=== PATIENT | male | born 1985 | race Caucasian/White ===

== ENCOUNTER 2016-09-22 19:22 | Emergency (ER) | payer MEDICAID, OTHER ==
[~2016-09-22] VITALS: Ht 175.3 cm; Wt 82.6 kg
[2016-09-22 19:23] VITALS: BP 135/73
[2016-09-22] MEDS ORDERED: CYCL10TA PO (20:13)
[2016-09-22] MEDS ORDERED: IBUP-1022 PO (20:13)
[2016-09-22] MEDS ORDERED: IBUPROFEN 600 MG TAB PO ONE (20:15)
[2016-09-22] MEDS ORDERED: CYCLOBENZAPRINE 10 MG TAB PO ONE (20:15)
== END 2016-09-22 20:36 | disposition home or self-care (01) ==
LOC: M ED 19:22
DX: S39.012A Strain of muscle, fascia and tendon of lower back, initial encounter (principal); X50.0XXA Overexertion from strenuous movement or load, initial encounter; Y92.89 Other specified places as the place of occurrence of the external cause; Y93.89 Activity, other specified; Y99.0 Civilian activity done for income or pay

== ENCOUNTER 2017-07-01 17:38 | Emergency (ER) | payer OTHER ==
[2017-07-01] MEDS: DERMABOND TOPICAL SKIN ADHESIVE TOP (20:15)
== END 2017-07-01 20:32 | disposition home or self-care (01) ==
LOC: M ED 17:38
DX: S61.212A Laceration without foreign body of right middle finger without damage to nail, initial encounter (principal); V48.4XXA Person boarding or alighting a car injured in noncollision transport accident, initial encounter; Y92.89 Other specified places as the place of occurrence of the external cause
CPT/HCPCS: 12001

== ENCOUNTER 2019-09-25 08:45 | Emergency (ER) | payer OTHER ==
[~2019-09-25 08:45] MED LIST: CYCL-707 PO; IBUP-1022 PO
[2019-09-25] MEDS ORDERED: diphenhydrAMINE 50MG/ML VIAL (J1200) ONE (09:09)
[2019-09-25] MEDS ORDERED: diphenhydrAMINE 50MG/ML VIAL (J1200) As Ordered ONE (09:09)
[2019-09-25] MEDS ORDERED: dexameTHASONE 4 MG/ML 1ML VIAL (J1100 PER 1MG) As Ordered ONE (09:09)
[2019-09-25] MEDS ORDERED: dexameTHASONE 4 MG/ML 1ML VIAL (J1100 PER 1MG) ONE (09:09)
== END 2019-09-25 10:46 | disposition home or self-care (01) ==
LOC: M ED 08:45
DX: H02.843 Edema of right eye, unspecified eyelid (principal); T63.441A Toxic effect of venom of bees, accidental (unintentional), initial encounter
CPT/HCPCS: 96374; 96375; 99284; J1100; J1200

== ENCOUNTER 2020-06-15 18:00 | Emergency (ER) | payer OTHER ==
[~2020-06-15] VITALS: Ht 177.8 cm; Wt 88.6 kg
[2020-06-15] MEDS ORDERED: advil (18:13)
[2020-06-15] MEDS ORDERED: ACET-897 PO (18:13)
[2020-06-15] MEDS ORDERED: MAGIC MOUTHWASH SUSPENSION BTL SS STA (22:00)
[2020-06-15] MEDS ORDERED: AUGMENTIN 875 MG TAB PO ONE (22:00)
[2020-06-15] MEDS ORDERED: NORCO 5/325MG TABLET (BULK FOR ED) PO ONE (22:00)
[2020-06-15] MEDS ORDERED: MAGICMW SSP (22:04)
[2020-06-15] MEDS ORDERED: HYDR-3713 PO (22:04)
[2020-06-15] MEDS ORDERED: AUGM875T28 PO (22:04)
[2020-06-15 22:13] VITALS: BP 149/88
== END 2020-06-15 22:16 | disposition home or self-care (01) ==
LOC: M ED 18:00
DX: K02.9 Dental caries, unspecified (principal); K08.89 Other specified disorders of teeth and supporting structures; I10 Essential (primary) hypertension; E78.5 Hyperlipidemia, unspecified; Z88.5 Allergy status to narcotic agent

== ENCOUNTER → 2021-05-11 | Outpatient (REF) | payer OTHER ==
[~2021-05-11] MED LIST changes: +ACET-897 PO; +AUGM875T28 PO; +HYDR-3713 PO; +MAGICMW SSP; +advil
== END ==
LOC: M SMT 13:06
PROVIDERS: ATTEND Urology
DX: Z30.2 Encounter for sterilization (principal)

== ENCOUNTER → 2021-07-02 | Outpatient (REF) | payer OTHER ==
[2021-07-02 14:27] LABS: SEMEN APPEARANCE OPAQUE (OPAQUE); SEMEN VISCOSITY LIQUID (LIQUID); SEMEN VOLUME 4.1 ml (2.0-5.0)
[2021-07-02 14:28] LABS: WBC CONCENTRATION <=1 M/ml (<=1 M/ml)
== END ==
LOC: M SMT 14:22
PROVIDERS: ATTEND Urology
DX: Z30.8 Encounter for other contraceptive management (principal)